=== PATIENT | female | born 1990 | race Two or more races ===

== ENCOUNTER 2022-12-20 09:15 | Inpatient (IN) | payer OTHER ==
[~2022-12-20] VITALS: Ht 154.9 cm; Wt 77.1 kg
[2023-01-06] MEDS ORDERED: PRENATAL TABLE1 EAC1 PO (11:45)
== END 2023-01-09 12:13 | disposition home or self-care (01) | DRG 807 ==
LOC: LDR 01-06 10:35 → OB/GYN 01-07 16:56
PROVIDERS: ADMIT Obstetrics & Gynecology Maternal & Fetal Medicine; ATTEND Obstetrics & Gynecology Maternal & Fetal Medicine
PROC: 3E0P7VZ Introduction of Hormone into Female Reproductive, Via Natural or Artificial Opening (ICD-10-PCS; 2023-01-06)
PROC: 4A1HXCZ Monitoring of Products of Conception, Cardiac Rate, External Approach (ICD-10-PCS; 2023-01-06)
PROC: 10E0XZZ Delivery of Products of Conception, External Approach (ICD-10-PCS; principal; 2023-01-07)
PROC: 0HQ9XZZ Repair Perineum Skin, External Approach (ICD-10-PCS; 2023-01-07)
PROC: 3E033VJ Introduction of Other Hormone into Peripheral Vein, Percutaneous Approach (ICD-10-PCS; 2023-01-07)
DX: O70.0 First degree perineal laceration during delivery (principal); Z37.0 Single live birth; Z3A.39 39 weeks gestation of pregnancy; Z20.822 Contact with and (suspected) exposure to COVID-19

== ENCOUNTER 2023-01-02 07:10 | Outpatient (CLI) | payer OTHER | END 2023-01-02 07:49 | disposition home or self-care (01) | LOC: NST 07:10 | PROVIDERS: ATTEND Obstetrics & Gynecology Maternal & Fetal Medicine | DX: Z34.83 Encounter for supervision of other normal pregnancy, third trimester (principal) ==

== ENCOUNTER 2023-02-25 09:33 | Outpatient (CLI) | payer OTHER ==
[~2023-02-25 09:33] MED LIST: PRENATAL TABLE1 EAC1 PO
== END 2023-02-25 09:49 | disposition home or self-care (01) ==
LOC: SONOGRAMA 09:33
PROVIDERS: ATTEND Obstetrics & Gynecology
DX: N63.21 Unspecified lump in the left breast, upper outer quadrant (principal); N63.12 Unspecified lump in the right breast, upper inner quadrant